=== PATIENT | male | born 1950 | race Caucasian/White ===

== ENCOUNTER 2016-10-18 16:51 | Emergency (ER) | payer OTHER ==
[~2016-10-18] VITALS: Ht 157.5 cm; Wt 89.0 kg
[2016-10-18 16:59] VITALS: Ht 157.5 cm; Wt 89.0 kg
[2016-10-18] MEDS ORDERED: ALBUTEROL 0.5% (NEB) 2.5 MG/0.5 ML AMP INH STA (19:09)
[2016-10-18 19:51] LABS: BASOPHIL # 0.1 10^3/ul (0.0-0.1); BASOPHILS % 0.5 % (0.0-2.0); EOSINOPHILS # 0.1 10^3/ul (0.0-0.5); EOSINOPHILS % 1.1 % (0.0-7.0); HEMATOCRIT 45.6 % (42.0-52.0); HEMOGLOBIN 15.7 g/dl (14.0-18.0); LYMPHOCYTES # 2.9 10^3/ul (0.8-2.9); LYMPHOCYTES % 29.7 % (15.0-51.0); MEAN CORPUSCULAR HGB CONC 34.5 g/dl (32.0-37.0); MEAN PLATELET VOLUME 8.4 fl (7.4-10.4); MONOCYTE # 0.8 10^3/ul (0.3-0.9); MONOCYTES % 7.8 % (0.0-11.0); NEUTROPHILS % 60.9 % (39.0-77.0); PLATELET COUNT 257 10^3/UL (140-440); RED BLOOD COUNT 5.24 10^6/ul (4.70-6.10); RED CELL DISTRIBUTION WIDTH 12.8 % (11.5-14.5); UNCORRECTED WBC 9.8 10^3/ul (4.8-10.8); WHITE BLOOD COUNT 9.8 10^3/ul (4.8-10.8)
[2016-10-18 19:53] LABS: CONDITION 1
[2016-10-18 20:00] LABS: CHLORIDE 99 mmol/L (97-110); INR 1.01; POTASSIUM 3.9 mmol/L (3.5-5.1); PROTIME 13.3 Sec (12.2-14.2); SODIUM 139 mmol/L (135-144)
[2016-10-18 20:01] LABS: PARTIAL THROMBOPLASTIN TIME 33.7 Sec (25.0-35.0)
[2016-10-18 20:03] LABS: ANION GAP 18 (8-16); BLOOD UREA NITROGEN 14 mg/dl (7-20); CARBON DIOXIDE 26 mmol/L (21-31); CREATININE 0.74 mg/dl (0.61-1.24)
[2016-10-18 20:04] LABS: CALCIUM 9.2 mg/dl (8.4-10.2); GLUCOSE 121 mg/dl (70-220)
[2016-10-18 20:17] LABS: TROPONIN-I < 0.012 ng/ml (0.00-0.12)
--- NOTE | 2016-10-18 20:21 | RADRPT ---
PROCEDURE: XR Chest. CLINICAL INDICATION: Dyspnea. TECHNIQUE: Single frontal view of the chest was obtained COMPARISON: None FINDINGS: Cardiomegaly and atherosclerotic calcifications in the thoracic aorta. Mild pulmonary vascular wale estion. There is no pleural effusion or pneumothorax. IMPRESSION: Cardiomegaly and thoracic aortic calcifications, with mild pulmonary vascular congestion. RPTAT: [facility] Physician Shahram Date Time Electronically viewed and signed by Physician Shahram on 10/18/2016 20:20 RS/
[2016-10-18] MEDS ORDERED: ALBU18HF INHALATION (20:32)
[2016-10-18 20:55] VITALS: BP 179/86; PULSE 72; RESP 16; TEMP 98.9
--- NOTE | 2016-10-19 13:24 | ERD ---
ER Documentation Chief Complaint Date/Time DATE: 10/19/16 TIME: 13:24 Chief Complaint has asthma, having problems with breathing since october 06, does not h HPI 66-year-old male with a history of hypertension and asthma presenting with complaints of shortness of breath for over 2 weeks. He states that he initially had cold, which has improved. However he continues to have shortness of breath. He states that the symptoms come and go, worse with exertion. No associated chest pain. No associated dizziness or diaphoresis. No recent surgeries or immobilization. No history of blood clots. He is requesting albuterol. ROS All systems reviewed and are negative except as per history of present illness. Medications Home Meds Active Scripts Albuterol Sulfate* (Ventolin HFA*) 18 Gm Hfa.aer.ad, 2 PUFF INHALATION Q4H Y for WHEEZING, #1 INHALER Prov:MERA IQBAL MD 10/18/16 Allergies Allergies: Coded Allergies: No Known Allergy (Unverified , 10/18/16) PMhx/Soc History of Surgery: Yes (knee, arm, cholecystectomy) Anesthesia Reaction: No Hx Respiratory Disorders: Yes (asthma) Hx Cardiac Disorders: Yes (htn, high cholesterol) Hx Miscellaneous Medical Probl: Yes (diabetes) Hx Alcohol Use: No Hx Substance Use: No Hx Tobacco Use: No Smoking Status: Never smoker FmHx Family History: No diabetes Physical Exam Vitals Vital Signs Date Time Temp Pulse Resp B/P Pulse Ox O2 Delivery O2 Flow Rate FiO2 10/18/16 20:55 98.9 72 16 179/86 97 Room Air 10/18/16 19:34 68 22 95 21 10/18/16 16:59 98.1 86 20 186/83 97 Physical Exam Const: Well-appearing, no distress, nontoxic Head: Atraumatic Eyes: Normal Conjunctiva ENT: Normal External Ears, Nose and Mouth. Neck: Full range of motion..~ No meningismus. Resp: Diminished breath sounds bilaterally with end expiratory wheezing, no rales or rhonchi Cardio: Regular rate and rhythm, no murmurs Abd: Soft, non tender, non distended. Normal bowel sounds Skin: No petechiae or rashes Back: No midline or flank tenderness Ext: No cyanosis, or edema Neur: Awake and alert Psych: Normal Mood and Affect Result Diagram: 10/18/16194110/18/161941 Results 24 hrs Laboratory Tests Test 10/18/16 19:42 Activated Partial Thromboplast Time 33.7Sec Anion Gap 18 Basophils # 0.110^3/ul Basophils % 0.5% Blood Urea Nitrogen 14mg/dl Calcium Level 9.2mg/dl Carbon Dioxide Level 26mmol/L Chloride Level 99mmol/L Creatinine 0.74mg/dl Eosinophils # 0.110^3/ul Eosinophils % 1.1% Glucose Level 121mg/dl Hematocrit 45.6% Hemoglobin 15.7g/dl INR International Normalized Ratio 1.01 Lymphocytes # 2.910^3/ul Lymphocytes % 29.7% Mean Corpuscular Hemoglobin 30.0pg Mean Corpuscular Hemoglobin Concent 34.5g/dl Mean Corpuscular Volume 87.0fl Mean Platelet Volume 8.4fl Monocytes # 0.810^3/ul Monocytes % 7.8% Neutrophils # 6.010^3/ul Neutrophils % 60.9% Nucleated Red Blood Cells # 0.010^3/ul Nucleated Red Blood Cells % 0.0/100WBC Platelet Count 60583^3/UL Potassium Level 3.9mmol/L Prothrombin Time 13.3Sec Prothrombin Time Ratio 1.0 Red Blood Count 5.2410^6/ul Red Cell Distribution Width 12.8% Sodium Level 139mmol/L Troponin I < 0.012ng/ml White Blood Count 9.810^3/ul Current Medications Medications (Trade) Dose Ordered Sig/Zackary Route PRN Reason Start Time Stop Time Status Last Admin Dose Admin Albuterol (Proventil 0.5% (Neb)) 5 mg ONCE STAT INH 10/18/16 19:09 10/18/16 19:10 DC 10/18/16 19:33 Procedures/MDM EKG: Rate/Rhythm: Normal Sinus Rhythm QRS, ST, T-waves: Left axis deviation, LVH, no changes consistent w/ acute ischemia Impression: No evidence of ischemia or arrhythmia Patient is presenting with shortness of breath for several weeks. His vitals are within normal limits and he is afebrile. I have a low suspicion for pulmonary embolism, acute coronary syndrome, acute decompensated CHF, or pneumonia. Chest x-ray showed mild pulmonary vascular congestion, however no infiltrates, effusions or pneumothorax. An albuterol med neb treatment was given with significant improvement in his symptoms. His labs were unremarkable. His EKG was nonischemic. His troponin was negative. I believe the patient is stable for discharge at this time. He was given a refill of his albuterol. Return precautions were discussed in length. Patient was discharged in stable condition. Departure Diagnosis: Primary Impression: Asthma with acute exacerbation Asthma severity: mild intermittent Qualified Code: J45.21 - Mild intermittent asthma with acute exacerbation Condition: Stable Patient Instructions: Asthma, Acute (Adult) Referrals: OBINNA READ MD (PCP) MERA IQBAL MD Oct 19, 2016 13:24
== END 2016-10-18 20:57 | disposition home or self-care (01) ==
LOC: E/R 16:51
DX: J45.21 Mild intermittent asthma with (acute) exacerbation (principal); I10 Essential (primary) hypertension; E11.9 Type 2 diabetes mellitus without complications
CPT/HCPCS: 36415; 71010; 80048; 84484; 85025; 85610; 85730; 93005; 94664

== ENCOUNTER 2018-05-30 10:20 | Emergency (ER) | END 2018-05-30 12:39 | disposition left against medical advice (07) ==

== ENCOUNTER 2018-06-17 15:55 | Emergency (ER) | END 2018-06-17 23:02 | disposition home or self-care (01) ==